=== PATIENT | male | born 1970 | race Two or more races ===

== ENCOUNTER → 2016-10-11 | Outpatient (CLI) | payer OTHER ==
[2016-10-11 09:48] LABS: microscopic required? YES; urine erythrocyte TRACE (NEGATIVE)
[2016-10-11 10:01] LABS: ALBUMIN 4.5 g/dL (3.4-5.0); ALKALINE PHOSPHATASE 88 U/L (46-116); ALT/SGPT 68 U/L (16-63); AST/SGOT 31 U/L (15-37); BILIRUBIN TOTAL 0.4 mg/dL (0.20-1.00); CALCIUM 9.3 mg/dL (8.5-10.1); CARBON DIOXIDE 28.5 mmol/L (21-32); CHLORIDE SERUM 104 mmol/L (98-107); CREATININE SERUM 0.8 mg/dL (0.7-1.3); GFR1 > 60 mL/min; GLUCOSE SERUM 98 mg/dL (74-106); HDL CHOLESTEROL 49 mg/dL (40-60); POTASSIUM SERUM 4.4 mmol/L (3.5-5.1); SODIUM SERUM 142 mmol/L (136-145); TOTAL PROTEIN, SERUM 7.9 g/dL (6.4-8.2); TRIGLYCERIDES 42 mg/dL (<150)
[2016-10-11 10:04] LABS: CHOLESTEROL 115 mg/dL (<200); CHOLESTEROL/HDL RATIO 2.3
== END | disposition home or self-care (01) ==
LOC: LB 08:57
PROVIDERS: Family Medicine Geriatric Medicine
DX: I10 Essential (primary) hypertension (principal); Z12.5 Encounter for screening for malignant neoplasm of prostate; Z13.1 Encounter for screening for diabetes mellitus; Z13.220 Encounter for screening for lipoid disorders; Z13.29 Encounter for screening for other suspected endocrine disorder; R53.83 Other fatigue
CPT/HCPCS: 84153; 84402; 84403

== ENCOUNTER → 2016-10-14 | Outpatient (CLI) | payer OTHER | END | disposition home or self-care (01) | LOC: US 16:00 | PROC: BV44ZZZ Ultrasonography of Scrotum (ICD-10-PCS; principal; 2016-10-14) | PROC: BW40ZZZ Ultrasonography of Abdomen (ICD-10-PCS; 2016-10-14) | DX: R10.11 Right upper quadrant pain (principal); N50.89 Other specified disorders of the male genital organs ==

== ENCOUNTER → 2017-01-06 | Outpatient (CLI) | payer OTHER ==
[2017-01-06 08:29] LABS: ALBUMIN 4.2 g/dL (3.4-5.0); BILIRUBIN DIRECT 0.08 mg/dL (0.0-0.2); BILIRUBIN TOTAL 0.5 mg/dL (0.20-1.00)
[2017-01-06 08:35] LABS: TOTAL PROTEIN, SERUM 8.3 g/dL (6.4-8.2)
== END | disposition home or self-care (01) ==
LOC: LB 06:59
PROVIDERS: Internal Medicine Gastroenterology
DX: R94.5 Abnormal results of liver function studies (principal)

== ENCOUNTER → 2017-01-20 | Outpatient (CLI) | payer OTHER | END | disposition home or self-care (01) | LOC: LB 17:37 | DX: Z30.2 Encounter for sterilization (principal) ==

== ENCOUNTER 2017-01-30 07:08 | Day surgery (SDC) | payer OTHER ==
[~2017-01-30] VITALS: Ht 172.7 cm; Wt 81.2 kg
[2017-01-30 07:21] VITALS: BP 125/82
[2017-01-30 10:11] VITALS: BP 107/65
== END 2017-01-30 11:45 | disposition home or self-care (01) ==
LOC: GI 07:08 → OR 08:30 → GI 11:45
PROVIDERS: Internal Medicine Gastroenterology
PROC: 0DB58ZX Excision of Esophagus, Via Natural or Artificial Opening Endoscopic, Diagnostic (ICD-10-PCS; principal; 2017-01-30 08:30)
PROC: 0DB68ZX Excision of Stomach, Via Natural or Artificial Opening Endoscopic, Diagnostic (ICD-10-PCS; 2017-01-30 08:30)
DX: R12 Heartburn (principal); R13.10 Dysphagia, unspecified; I10 Essential (primary) hypertension; R73.03 Prediabetes; Z68.25 Body mass index [BMI] 25.0-25.9, adult
CPT/HCPCS: 43235; J1200; J1610; J2250; J2310; J3010; J3490

== ENCOUNTER → 2018-09-04 | Outpatient (CLI) | payer OTHER ==
[2018-09-04 11:14] LABS: ALBUMIN 4.3 g/dL (3.4-5.0); BILIRUBIN DIRECT 0.11 mg/dL (0.0-0.2); BILIRUBIN TOTAL 0.39 mg/dL (0.20-1.00)
== END | disposition home or self-care (01) ==
LOC: LB 10:16
DX: R94.5 Abnormal results of liver function studies (principal)

== ENCOUNTER → 2018-11-02 | Outpatient (CLI) | payer OTHER | END | disposition home or self-care (01) | LOC: RD 13:10 → CA 13:10 | DX: M25.562 Pain in left knee (principal); Z98.890 Other specified postprocedural states ==

== ENCOUNTER → 2019-04-07 | Outpatient (CLI) | payer OTHER ==
[2019-04-07 08:14] LABS: microscopic required? NO
[2019-04-07 08:47] LABS: BASOPHIL % 0.4 % (0-2); PLATELET COUNT 222 x10^3mcL (130-400); RED CELL DISTRIBUTION WIDTH 13.6 % (11.5-14.5)
[2019-04-07 08:49] LABS: UA SPECIFIC GRAVITY 1.015 (1.005-1.035); urine erythrocyte NEGATIVE (NEGATIVE)
[2019-04-07 08:54] LABS: ALBUMIN 4.3 g/dL (3.4-5.0); ALKALINE PHOSPHATASE 97 U/L (46-116); ALT/SGPT 93 U/L (16-63); AST/SGOT 31 U/L (15-37); BILIRUBIN TOTAL 0.5 mg/dL (0.20-1.00); CALCIUM 9.2 mg/dL (8.5-10.1); CARBON DIOXIDE 31.6 mmol/L (21-32); CHLORIDE SERUM 102 mmol/L (98-107); CHOLESTEROL 141 mg/dL (<200); CHOLESTEROL/HDL RATIO 3.9; CREATININE SERUM 1.1 mg/dL (0.7-1.3); FREE T4 0.87 ng/dL (0.76-1.46); GFR1 > 60 mL/min; GLUCOSE SERUM 109 mg/dL (74-106); HDL CHOLESTEROL 36 mg/dL (40-60); POTASSIUM SERUM 3.8 mmol/L (3.5-5.1); SODIUM SERUM 140 mmol/L (136-145); TRIGLYCERIDES 61 mg/dL (<150)
[2019-04-07 09:02] LABS: TOTAL PROTEIN, SERUM 8.5 g/dL (6.4-8.2)
== END | disposition home or self-care (01) ==
LOC: LB 08:04
DX: I10 Essential (primary) hypertension (principal); N52.9 Male erectile dysfunction, unspecified; R73.03 Prediabetes; Z13.29 Encounter for screening for other suspected endocrine disorder; Z13.21 Encounter for screening for nutritional disorder; Z13.0 Encounter for screening for diseases of the blood and blood-forming organs and certain disorders involving the immune mechanism; Z13.220 Encounter for screening for lipoid disorders
CPT/HCPCS: 82652; 84402; 84403; 84439

== ENCOUNTER → 2019-09-03 | Outpatient (CLI) | payer OTHER ==
[2019-09-03 12:59] LABS: ALBUMIN 4.3 g/dL (3.4-5.0); ALKALINE PHOSPHATASE 105 U/L (46-116); ALT/SGPT 121 U/L (16-63); AST/SGOT 44 U/L (15-37); BILIRUBIN DIRECT 0.12 mg/dL (0.0-0.2); CALCIUM 9.3 mg/dL (8.5-10.1); CARBON DIOXIDE 27.3 mmol/L (21-32); CHLORIDE SERUM 103 mmol/L (98-107); GFR1 > 60 mL/min; GLUCOSE SERUM 106 mg/dL (74-106); POTASSIUM SERUM 3.9 mmol/L (3.5-5.1); SODIUM SERUM 141 mmol/L (136-145); TOTAL PROTEIN, SERUM 8.1 g/dL (6.4-8.2)
== END | disposition home or self-care (01) ==
LOC: LB 09:02
DX: I10 Essential (primary) hypertension (principal); K75.81 Nonalcoholic steatohepatitis (NASH); R73.03 Prediabetes; M79.645 Pain in left finger(s); M54.5 Low back pain; Z12.5 Encounter for screening for malignant neoplasm of prostate
CPT/HCPCS: 84153; Q0092

== ENCOUNTER → 2019-11-04 | Outpatient (CLI) | payer OTHER ==
[2019-11-04 16:55] LABS: microscopic required? NO
[2019-11-04 17:05] LABS: UA SPECIFIC GRAVITY >=1.030 (1.005-1.035); urine erythrocyte NEGATIVE (NEGATIVE)
[2019-11-04 17:07] LABS: BASOPHIL % 0.4 % (0-2); PLATELET COUNT 222 x10^3mcL (130-400); RED CELL DISTRIBUTION WIDTH 13.1 % (11.5-14.5)
[2019-11-04 17:23] LABS: ALBUMIN 4.4 g/dL (3.4-5.0); C REACTIVE PROTEIN 0.7 mg/dL (<=0.9); CREATININE SERUM 1.1 mg/dL (0.7-1.3); GFR1 > 60 mL/min; URIC ACID 4.4 mg/dL (3.5-7.2)
[2019-11-04 18:13] LABS: ALKALINE PHOSPHATASE 122 U/L (46-116); ALT/SGPT 80 U/L (16-63); AST/SGOT 30 U/L (15-37); BILIRUBIN TOTAL 0.27 mg/dL (0.20-1.00); CALCIUM 8.9 mg/dL (8.5-10.1); CARBON DIOXIDE 31.6 mmol/L (21-32); CHLORIDE SERUM 102 mmol/L (98-107); GLUCOSE SERUM 132 mg/dL (74-106); POTASSIUM SERUM 3.9 mmol/L (3.5-5.1); SODIUM SERUM 140 mmol/L (136-145); TOTAL PROTEIN, SERUM 7.9 g/dL (6.4-8.2)
[2019-11-04 18:22] LABS: ERYTHROCYTE SED RATE 11 mm/hr (0-15)
== END | disposition home or self-care (01) ==
LOC: LB 15:39
DX: M19.032 Primary osteoarthritis, left wrist (principal); M19.031 Primary osteoarthritis, right wrist
CPT/HCPCS: 83516; 86200; 86225; 86235; 86431

== ENCOUNTER → 2020-01-13 | Outpatient (CLI) | payer OTHER | END | disposition home or self-care (01) | LOC: US 08:39 | PROC: BW40ZZZ Ultrasonography of Abdomen (ICD-10-PCS; principal; 2020-01-13) | DX: R76.8 Other specified abnormal immunological findings in serum (principal); R79.89 Other specified abnormal findings of blood chemistry ==

== ENCOUNTER 2020-02-29 07:46 | Day surgery (SDC) | payer OTHER ==
[2020-02-29] VITALS (8 sets, daily range): BP systolic 109–132; BP diastolic 74–89
[~2020-02-29] VITALS: Ht 170.2 cm; Wt 76.7 kg
--- NOTE | 2020-02-29 07:50 | NUR ---
PATIENT CAME TO OPS UNIT A/A/O X4. DENIED SOB OR PAIN, BUT STATED FEELING SLIGHTLY ANXIOUS. PATIENT WAS ORIENTED TO OPS UNIT, CHG MANPREET WIPES PROVIDED TO THE PATIENT. COMFORT AND PREPROCEDURE CARE PROVIDED TO THE PATIENT. CALL LIGHT WITHIN REACH. SIDE RAILS UP X2. GURNEY WAS AT LOWEST POSITION.
--- NOTE | 2020-02-29 08:45 | NUR ---
IV SITE WAS INSERTED TO RAC #[id number].
--- NOTE | 2020-02-29 09:10 | NUR ---
CALLED TO GIVE REPORT TO TASIA HALEY NURSE.
[2020-02-29 09:25] LABS: PLATELET COUNT 221 x10^3mcL (130-400); RED CELL DISTRIBUTION WIDTH 12.4 % (11.5-14.5)
[2020-02-29 09:42] LABS: BASOPHIL % 2.7 % (0-2)
--- NOTE | 2020-02-29 10:10 | NUR ---
PATIENT WAS TRANSFERRED TO RAD DEPT VIA [facility] BY TASIA HALEY RN.
--- NOTE | 2020-02-29 11:15 | NUR ---
RECEIVED THE PATIENT BACK FROM RAD DEPT S/P LIVER BIOPSY. PATIENT AWAKE AND ORIENTED TO PERSON, PLACE AND TIME. PATIENT DENIED PAIN AT THIS TIME. POST PROCEDURE CARE INITIATED. CALL LIGHT WITHIN REACH. SIDE RAILS UP X2. JIANRANITA WAS AT LOWEST POSITION.
--- NOTE | 2020-02-29 11:35 | NUR ---
PATIENT C/O THIRST; SOME ICE CHIPS WERE PROVIDED TO THE PATIENT.
--- NOTE | 2020-02-29 11:50 | NUR ---
PATIENT TOLERATED WITH SOME WATER FROM ICE WATER; LUNCH TRAY WAS SET UP ON BEDSIDE TABLE FOR THE PATIENT.
--- NOTE | 2020-02-29 12:30 | NUR ---
PATIENT TOLERATED WELL 100% REGULAR DIET FOR LUNCH. THE PATIENT'S CAME TO BEDSIDE. DISCHARGE INSTRUCTION WAS EXPLAINED THOROUGHLY TO THE PATIENT AND THE . CONCERNS WERE ADDRESSED AND BOTH VERBALIZED UNDERSTANDING.
--- NOTE | 2020-02-29 13:20 | NUR ---
PATIENT GOT TO [facility] WITH NO ASSISTANCE NEEDED AND CHANGED TO HIS OWN AND READY TO GO HOME. IV SITE WAS REMOVED WITH CATH AND TIP INTACT. PATIENT WAS TRANSFERRED TO THE CAR VIA WHEECHAIR IN STABLE CONDITION. THE BIOPSY SITE AT UPPER ABDOMEN COVERED WITH SMALL DRESSING CLEAN, DRY AND INTACT. ALL BELONGINGS WERE SENT HOME WITH THE PATIENT. THE PATIENT'S SPOUSE ACCOMPANIED THE PATIENT HOME.
== END 2020-02-29 13:20 | disposition home or self-care (01) ==
LOC: DS 07:46 → US 09:00 → DS 09:00
PROVIDERS: ATTEND Internal Medicine
DX: K75.81 Nonalcoholic steatohepatitis (NASH) (principal); K21.9 Gastro-esophageal reflux disease without esophagitis; K74.3 Primary biliary cirrhosis; Z79.899 Other long term (current) drug therapy
CPT/HCPCS: J2001; J2250; J3010

== ENCOUNTER 2020-03-07 06:41 | Day surgery (SDC) | payer OTHER ==
[~2020-03-07] VITALS: Ht 170.2 cm; Wt 76.7 kg
[2020-03-07 06:55] VITALS: BP 112/79
[2020-03-07 10:03] VITALS: BP 121/66
== END 2020-03-07 11:00 | disposition home or self-care (01) ==
LOC: DS 06:41 → OR 07:30 → DS 07:30
PROVIDERS: ATTEND Internal Medicine
DX: R10.32 Left lower quadrant pain (principal); D12.2 Benign neoplasm of ascending colon; K21.9 Gastro-esophageal reflux disease without esophagitis; J04.0 Acute laryngitis; K31.9 Disease of stomach and duodenum, unspecified
CPT/HCPCS: 43235; 45378; J1200; J1610; J2175; J2250; J2310; J3010; J3490

== ENCOUNTER → 2020-04-09 | Outpatient (CLI) | payer OTHER ==
[2020-04-09 11:16] LABS: ALBUMIN 4.5 g/dL (3.4-5.0); ALKALINE PHOSPHATASE 94 U/L (46-116); ALT/SGPT 45 U/L (16-63); AST/SGOT 20 U/L (15-37); BILIRUBIN DIRECT 0.14 mg/dL (0.0-0.2); BILIRUBIN TOTAL 0.51 mg/dL (0.20-1.00)
[2020-04-09 11:20] LABS: TOTAL PROTEIN, SERUM 8.5 g/dL (6.4-8.2)
== END | disposition home or self-care (01) ==
LOC: LB 10:08
PROVIDERS: ATTEND Internal Medicine
DX: K75.81 Nonalcoholic steatohepatitis (NASH) (principal); R73.03 Prediabetes